=== PATIENT | male | born 1975 | race Caucasian/White ===

== ENCOUNTER 2017-12-15 10:12 | Emergency (ER) | payer OTHER ==
[~2017-12-15] VITALS: Ht 180.3 cm; Wt 116.1 kg
[~2017-12-15 10:12] MED LIST: ACETAMINOPHEN500 MG PO; ALBU90OI INH; ATEN50 PO; Bactrim Ds Tab1 EACH PO; Benadryl25 MG; CYCL10 PO; DIVA500EC PO; FURO20 PO; Naprosyn250 MG PO; OMEP20ER PO; PARO10 PO; POTCHL10ER PO; Percocet 5-3251 EACH PO; RISP.5 PO
[2018-10-18] MEDS ORDERED: LORA1 PO (14:09)
[2018-10-18] MEDS ORDERED: RISP2 (14:09)
[2018-10-18] MEDS ORDERED: ATEN50 PO (14:09)
[2018-10-18] MEDS ORDERED: Oxcarbazepine300 MG PO (14:10)
[2018-10-18] MEDS ORDERED: Omeprazole20 M1 PO (14:10)
[2018-10-18] MEDS ORDERED: ONDA8 PO (14:10)
[2018-10-18] MEDS ORDERED: TRAZ50 PO (14:11)
[2018-10-18] MEDS ORDERED: ALBU90OI INH (14:11)
[2018-10-18] MEDS ORDERED: NAPR500 PO (14:11)
== END 2017-12-15 11:25 | disposition home or self-care (01) ==
LOC: ER 10:12
DX: R19.00 Intra-abdominal and pelvic swelling, mass and lump, unspecified site (principal); Z88.0 Allergy status to penicillin; Z88.2 Allergy status to sulfonamides; Z88.8 Allergy status to other drugs, medicaments and biological substances; Z79.899 Other long term (current) drug therapy; J45.909 Unspecified asthma, uncomplicated; F43.10 Post-traumatic stress disorder, unspecified; F31.9 Bipolar disorder, unspecified; F20.9 Schizophrenia, unspecified; F17.200 Nicotine dependence, unspecified, uncomplicated
CPT/HCPCS: 99282

== ENCOUNTER 2018-03-20 10:09 | Emergency (ER) | payer OTHER ==
[~2018-03-20] VITALS: Ht 175.3 cm; Wt 110.2 kg
[2018-03-20] MEDS ORDERED: Floxin10 ML RIGHTEAR (11:26)
== END 2018-03-20 11:31 | disposition home or self-care (01) ==
LOC: ER 10:09
DX: H60.91 Unspecified otitis externa, right ear (principal); Z88.0 Allergy status to penicillin; Z88.2 Allergy status to sulfonamides; Z88.8 Allergy status to other drugs, medicaments and biological substances; Z79.899 Other long term (current) drug therapy; J45.909 Unspecified asthma, uncomplicated; F43.10 Post-traumatic stress disorder, unspecified; F31.9 Bipolar disorder, unspecified; F20.9 Schizophrenia, unspecified; F17.200 Nicotine dependence, unspecified, uncomplicated
CPT/HCPCS: 99282

== ENCOUNTER → 2018-09-14 | Outpatient (CLI) | payer OTHER ==
[~2018-09-14] MED LIST changes: +Floxin10 ML RIGHTEAR; +LORA1 PO; +NAPR500 PO; +ONDA8 PO; +Omeprazole20 M1 PO; +Oxcarbazepine300 MG PO; +QUET25 PO; +RISP2; +TRAZ50 PO
[2018-09-14 17:15] LABS: U Amphetamine Screen Not Detected; U Barbituate Screen Not Detected; U Benzodiazapine Screen DETECTED; U Buprenorphine Screen Not Detected; U Cannabinoids Screen DETECTED; U Cocaine Screen Not Detected; U Methadone Screen Not Detected; U Methamphetamine Screen Not Detected; U Opiates Screen Not Detected; U Oxycodone Screen Not Detected; U Phencyclidine Screen Not Detected; U Propoxyphene Screen Not Detected
== END ==
LOC: LAB 15:00 → LAB SHORT 15:00
PROVIDERS: Registered Nurse
DX: Z51.81 Encounter for therapeutic drug level monitoring (principal); Z79.899 Other long term (current) drug therapy

== ENCOUNTER 2018-10-26 09:54 | Day surgery (SDC) | payer OTHER ==
[~2018-10-26] VITALS: Ht 180.3 cm; Wt 115.4 kg
[~2018-10-26 09:54] MED LIST changes: -QUET25 PO
[2018-10-26] MEDS ORDERED: QUET25 PO (10:43)
== END 2018-10-26 12:11 | disposition home or self-care (01) ==
LOC: ORSCSDS 09:54
PROVIDERS: Student in an Organized Health Care Education/Training Program
PROC: 0DB68ZX Excision of Stomach, Via Natural or Artificial Opening Endoscopic, Diagnostic (ICD-10-PCS; principal; 2018-10-26 11:30)
PROC: 0DB58ZX Excision of Esophagus, Via Natural or Artificial Opening Endoscopic, Diagnostic (ICD-10-PCS; principal; 2018-10-26 11:30)
DX: K21.9 Gastro-esophageal reflux disease without esophagitis (principal); R12 Heartburn; K44.9 Diaphragmatic hernia without obstruction or gangrene; K29.70 Gastritis, unspecified, without bleeding; I10 Essential (primary) hypertension; J45.909 Unspecified asthma, uncomplicated; F31.9 Bipolar disorder, unspecified; F41.8 Other specified anxiety disorders; F17.210 Nicotine dependence, cigarettes, uncomplicated; G47.33 Obstructive sleep apnea (adult) (pediatric); Z79.899 Other long term (current) drug therapy
CPT/HCPCS: 88305; 88342; J7120

== ENCOUNTER 2019-02-12 07:39 | Emergency (ER) | payer OTHER ==
[~2019-02-12] VITALS: Ht 180.3 cm; Wt 116.1 kg
[~2019-02-12 07:39] MED LIST changes: +QUET25 PO
[2019-02-12 09:09] LABS: Influenza A Negative (NEGATIVE); Influenza B Negative (NEGATIVE)
[2019-02-12] MEDS ORDERED: Mucinex600 MG PO (09:28)
[2019-02-12] MEDS ORDERED: Flonase 0.05% N16 GM (09:28)
== END 2019-02-12 09:42 | disposition home or self-care (01) ==
LOC: ER 07:39
PROVIDERS: Physician Assistant
DX: R51 Headache (principal); R68.83 Chills (without fever); R52 Pain, unspecified; J45.909 Unspecified asthma, uncomplicated; F31.9 Bipolar disorder, unspecified; F20.9 Schizophrenia, unspecified; G47.30 Sleep apnea, unspecified; F17.200 Nicotine dependence, unspecified, uncomplicated; Z88.0 Allergy status to penicillin; Z88.2 Allergy status to sulfonamides; Z88.6 Allergy status to analgesic agent; Z79.899 Other long term (current) drug therapy
CPT/HCPCS: 87804; 96372; 99284-25; J1885

== ENCOUNTER 2021-04-03 13:32 | Emergency (ER) | payer OTHER ==
[~2021-04-03] VITALS: Ht 180.3 cm; Wt 95.7 kg
[~2021-04-03 13:32] MED LIST changes: +Flonase 0.05% N16 GM; +Mucinex600 MG PO
[2021-04-03 14:43] LABS: BASOPHILS PERCENT AUTO 1 % (0-2); EOSINOPHILS ABSOLUTE AUTO 1.62 K/mm3 (0.00-0.68); EOSINOPHILS PERCENT AUTO 14 % (0-6); Hematocrit 44.2 % (37.0-53.0); Hemoglobin 15.1 g/dL (13.5-17.5); IMMATURE GRAN ABSOLUTE AUTO 0.04 K/mm3 (0.00-0.10); IMMATURE GRAN PERCENT AUTO 0 % (0-1); LYMPHOCYTES ABSOLUTE AUTO 1.86 K/mm3 (0.84-5.20); LYMPHOCYTES PERCENT AUTO 16 % (21-46); MONOCYTES ABSOLUTE AUTO 1.18 K/mm3 (0.16-1.47); MONOCYTES PERCENT AUTO 10 % (4-13); Mean Corpuscular HGB 29.5 pg (26.0-34.0); Mean Corpuscular HGB Conc 34.2 g/dL (31.5-36.5); Mean Corpuscular Volume 86 fL (80-100); Mean Platelet Volume 8.4 fL (9.1-12.4); NEUTROPHILS PERCENT AUTO 60 % (41-73); Platelet Count 411 K/mm3 (150-400); RDW Standard Deviation 38.2 fL (35.1-46.3); Red Blood Cell Count 5.12 M/mm3 (4.30-5.90)
[2021-04-03 15:09] LABS: Alanine Aminotransfer (ALT/SGP 33 U/L (12-78); Albumin, Blood 3.1 g/dL (3.4-5.0); Albumin/Globulin Ratio 0.8 (0.8-1.8); Alk Phos 75 U/L (50-136); Anion Gap 3 mmol/L (6-16); Aspartate Aminotrans (AST/SGOT 19 U/L (12-37); Bilirubin, Total 0.6 mg/dL (0.1-1.0); Blood Urea Nitrogen 13 mg/dL (8-24); Bun/Creatinine Ratio 14.5 (12.0-20.0); CO2, Blood 30 mmol/L (21-32); Calcium, Blood 8.7 mg/dL (8.5-10.1); Chloride, Blood 102 mmol/L (98-108); Creatinine, Blood 0.89 mg/dL (0.60-1.20); Glomerular Filtration Rate >60 (60-); Glucose, Blood 100 mg/dL (70-99); Potassium, Blood 4.5 mmol/L (3.5-5.5); Sodium, Blood 135 mmol/L (136-145); Total Protein, Blood 7.1 g/dL (6.4-8.2); Troponin I <0.015 ng/mL (0.000-0.040)
[2021-05-28] MEDS ORDERED: VALP250 PO (09:46)
[2021-05-28] MEDS ORDERED: SEROQUEL100 MG PO (09:47)
[2021-05-28] MEDS ORDERED: PARO10 PO (09:47)
[2021-05-28] MEDS ORDERED: QUETIAPINE FUMA50 M2 PO (09:47)
[2021-05-28] MEDS ORDERED: GABA300 PO (09:48)
[2021-05-28] MEDS ORDERED: NICODERM CQ1 EAC1 TOP (09:48)
[2021-05-28] MEDS ORDERED: BACL10 PO (09:48)
[2021-05-28] MEDS ORDERED: ATEN100 PO (09:48)
== END 2021-04-03 16:29 | disposition home or self-care (01) ==
LOC: ER 13:32
PROVIDERS: Physician Assistant
DX: J90 Pleural effusion, not elsewhere classified (principal); F17.200 Nicotine dependence, unspecified, uncomplicated; Z88.0 Allergy status to penicillin; Z88.2 Allergy status to sulfonamides; Z88.6 Allergy status to analgesic agent; Z79.899 Other long term (current) drug therapy
CPT/HCPCS: 36415; 71045; 80053; 83880; 84484; 85025; 93005; 93010; 99284-25

== ENCOUNTER 2021-05-28 10:00 | Emergency (ER) | payer OTHER ==
[~2021-05-28] VITALS: Ht 180.3 cm; Wt 99.8 kg
[~2021-05-28 10:00] MED LIST changes: +ATEN100 PO; +BACL10 PO; +GABA300 PO; +NICODERM CQ1 EAC1 TOP; +QUETIAPINE FUMA50 M2 PO; +SEROQUEL100 MG PO; +VALP250 PO
[2021-05-28 10:41] LABS: BASOPHILS ABSOLUTE AUTO 0.03 K/mm3 (0.00-0.23); BASOPHILS PERCENT AUTO 0 % (0-2); EOSINOPHILS ABSOLUTE AUTO 0.31 K/mm3 (0.00-0.68); EOSINOPHILS PERCENT AUTO 4 % (0-6); Hematocrit 42.9 % (37.0-53.0); Hemoglobin 13.8 g/dL (13.5-17.5); IMMATURE GRAN ABSOLUTE AUTO 0.02 K/mm3 (0.00-0.10); IMMATURE GRAN PERCENT AUTO 0 % (0-1); LYMPHOCYTES ABSOLUTE AUTO 1.18 K/mm3 (0.84-5.20); LYMPHOCYTES PERCENT AUTO 17 % (21-46); MONOCYTES ABSOLUTE AUTO 0.56 K/mm3 (0.16-1.47); MONOCYTES PERCENT AUTO 8 % (4-13); Mean Corpuscular HGB 28.5 pg (26.0-34.0); Mean Corpuscular HGB Conc 32.2 g/dL (31.5-36.5); Mean Corpuscular Volume 89 fL (80-100); Mean Platelet Volume 8.8 fL (9.1-12.4); NEUTROPHILS ABSOLUTE AUTO 4.96 K/mm3 (1.96-9.15); NEUTROPHILS PERCENT AUTO 70 % (41-73); Platelet Count 287 K/mm3 (150-400); RDW Coefficient Variation 13.2 % (11.7-14.2); RDW Standard Deviation 43.1 fL (35.1-46.3); Red Blood Cell Count 4.85 M/mm3 (4.30-5.90); White Blood Cell Count 7.06 K/mm3 (4.00-11.30)
[2021-05-28 11:03] LABS: Alanine Aminotransfer (ALT/SGP 26 U/L (12-78); Albumin/Globulin Ratio 0.8 (0.8-1.8); Alk Phos 78 U/L (50-136); Anion Gap 4 mmol/L (6-16); Aspartate Aminotrans (AST/SGOT 13 U/L (12-37); Bilirubin, Total 0.2 mg/dL (0.1-1.0); Blood Urea Nitrogen 18 mg/dL (8-24); Bun/Creatinine Ratio 23.7 (12.0-20.0); CO2, Blood 29 mmol/L (21-32); Calcium, Blood 8.5 mg/dL (8.5-10.1); Chloride, Blood 107 mmol/L (98-108); Creatinine, Blood 0.76 mg/dL (0.60-1.20); Globulin, Blood 3.8 g/dL (2.2-4.0); Glomerular Filtration Rate >60 (60-); Glucose, Blood 108 mg/dL (70-99); Sodium, Blood 140 mmol/L (136-145); Total Protein, Blood 6.8 g/dL (6.4-8.2); Troponin I <0.015 ng/mL (0.000-0.040)
[2021-05-28] MEDS ORDERED: ALBU90OI INH (11:46)
[2021-05-28] MEDS ORDERED: PRED20 PO (11:46)
[2021-05-28] MEDS ORDERED: AZIT250 PO (11:46)
== END 2021-05-28 12:03 | disposition home or self-care (01) ==
LOC: ER 10:00
PROVIDERS: Emergency Medicine
DX: R07.9 Chest pain, unspecified (principal); J40 Bronchitis, not specified as acute or chronic; Z88.0 Allergy status to penicillin; Z79.899 Other long term (current) drug therapy; F17.210 Nicotine dependence, cigarettes, uncomplicated
CPT/HCPCS: 71046; 80053; 84484; 85025; 93005; 93010; 94644; 99284-25; J1100; J1885

== ENCOUNTER 2021-09-03 05:57 | Emergency (ER) | payer OTHER ==
[~2021-09-03] VITALS: Ht 180.3 cm; Wt 62.6 kg
[~2021-09-03 05:57] MED LIST changes: +ALBU2.5V5 INH; +AZIT250 PO; +DIVA250ER PO; +LEVO750 PO; +Nicoderm Cq1 EAC1 TOP; +PRED20 PO; +Prednisone10 MG PO; +QUET100 PO; +VISBIOME 112.51 EACH PO
[2021-09-03 07:57] LABS: BASOPHILS ABSOLUTE AUTO 0.04 K/mm3 (0.00-0.23); BASOPHILS PERCENT AUTO 0 % (0-2); EOSINOPHILS ABSOLUTE AUTO 0.07 K/mm3 (0.00-0.68); EOSINOPHILS PERCENT AUTO 1 % (0-6); Hematocrit 45.1 % (37.0-53.0); Hemoglobin 14.4 g/dL (13.5-17.5); IMMATURE GRAN ABSOLUTE AUTO 0.14 K/mm3 (0.00-0.10); IMMATURE GRAN PERCENT AUTO 2 % (0-1); LYMPHOCYTES ABSOLUTE AUTO 2.13 K/mm3 (0.84-5.20); LYMPHOCYTES PERCENT AUTO 23 % (21-46); MONOCYTES ABSOLUTE AUTO 0.73 K/mm3 (0.16-1.47); MONOCYTES PERCENT AUTO 8 % (4-13); Mean Corpuscular HGB 28.2 pg (26.0-34.0); Mean Corpuscular HGB Conc 31.9 g/dL (31.5-36.5); Mean Corpuscular Volume 88 fL (80-100); Mean Platelet Volume 8.9 fL (9.1-12.4); NEUTROPHILS ABSOLUTE AUTO 6.12 K/mm3 (1.96-9.15); NEUTROPHILS PERCENT AUTO 66 % (41-73); Platelet Count 234 K/mm3 (150-400); RDW Standard Deviation 45.3 fL (35.1-46.3); Red Blood Cell Count 5.11 M/mm3 (4.30-5.90); White Blood Cell Count 9.23 K/mm3 (4.00-11.30)
[2021-09-03 08:08] LABS: Alanine Aminotransfer (ALT/SGP 20 U/L (12-78); Albumin/Globulin Ratio 0.9 (0.8-1.8); Alk Phos 61 U/L (50-136); Anion Gap 3 mmol/L (6-16); Aspartate Aminotrans (AST/SGOT 6 U/L (12-37); Bilirubin, Total 0.2 mg/dL (0.1-1.0); Blood Urea Nitrogen 22 mg/dL (8-24); CO2, Blood 29 mmol/L (21-32); Calcium, Blood 8.3 mg/dL (8.5-10.1); Chloride, Blood 107 mmol/L (98-108); Creatinine, Blood 0.79 mg/dL (0.60-1.20); Globulin, Blood 3.3 g/dL (2.2-4.0); Glomerular Filtration Rate >60 (60-); Glucose, Blood 94 mg/dL (70-99); Sodium, Blood 139 mmol/L (136-145); Total Protein, Blood 6.3 g/dL (6.4-8.2); Troponin I <0.015 ng/mL (0.000-0.040)
== END 2021-09-03 09:05 | disposition home or self-care (01) ==
LOC: ER 05:57
PROVIDERS: Physician Assistant
DX: J18.9 Pneumonia, unspecified organism (principal); J45.909 Unspecified asthma, uncomplicated; G47.30 Sleep apnea, unspecified; F17.210 Nicotine dependence, cigarettes, uncomplicated; Z88.0 Allergy status to penicillin; Z79.899 Other long term (current) drug therapy
CPT/HCPCS: 36415; 71046; 80053; 83880; 84484; 85025; 93005; 93010; 99285-25

== ENCOUNTER 2021-09-22 07:52 | Observation (INO) | payer OTHER ==
[~2021-09-22] VITALS: Ht 180.3 cm; Wt 114.8 kg
[2021-09-22 08:32] LABS: Hemoglobin 15.9 g/dL (13.5-17.5); Mean Corpuscular HGB 28.4 pg (26.0-34.0); Mean Corpuscular HGB Conc 33.1 g/dL (31.5-36.5); Mean Corpuscular Volume 86 fL (80-100); Mean Platelet Volume 8.6 fL (9.1-12.4); Platelet Count 245 K/mm3 (150-400); RDW Coefficient Variation 13.5 % (11.7-14.2); RDW Standard Deviation 42.1 fL (35.1-46.3); White Blood Cell Count 9.72 K/mm3 (4.00-11.30)
[2021-09-22 08:57] LABS: Alanine Aminotransfer (ALT/SGP 26 U/L (12-78); Albumin, Blood 3.6 g/dL (3.4-5.0); Albumin/Globulin Ratio 0.9 (0.8-1.8); Alk Phos 86 U/L (50-136); Anion Gap 8 mmol/L (6-16); Aspartate Aminotrans (AST/SGOT 16 U/L (12-37); Bilirubin, Total 0.4 mg/dL (0.1-1.0); Blood Urea Nitrogen 27 mg/dL (8-24); Bun/Creatinine Ratio 37.4 (12.0-20.0); CO2, Blood 26 mmol/L (21-32); Calcium, Blood 8.9 mg/dL (8.5-10.1); Chloride, Blood 104 mmol/L (98-108); Creatinine, Blood 0.72 mg/dL (0.60-1.20); Ethanol (Alcohol), Blood, Med <3 mg/dL; Free Thyroxine 0.78 ng/dL (0.70-1.60); Globulin, Blood 3.8 g/dL (2.2-4.0); Glomerular Filtration Rate >60 (60-); Glucose, Blood 132 mg/dL (70-99); Sodium, Blood 138 mmol/L (136-145); Thyroid Stimulating Hormone 0.563 uIU/mL (0.360-4.800); Total Protein, Blood 7.4 g/dL (6.4-8.2)
[2021-09-22 08:58] LABS: Acetaminophen, Random <2.0 ug/mL (10.0-30.0)
[2021-09-22 09:00] LABS: BAND PERCENT MAN 2 % (0-8); BASOPHILS PERCENT MAN 0 % (0-2); EOSINOPHILS PERCENT MAN 0 % (0-6); LYMPHOCYTES ABSOLUTE MAN 0.58 K/mm3 (0.84-5.20); LYMPHOCYTES PERCENT MAN 6 % (21-46); MONOCYTES ABSOLUTE MAN 0.09 K/mm3 (0.16-1.47); MONOCYTES PERCENT MAN 1 % (4-13); NEUTROPHILS ABSOLUTE MAN 9.03 K/mm3 (1.96-9.15); SEG NEUTROPHILS PERCENT MAN 91 % (41-73); TOTAL CELLS COUNTED 100
[2021-09-22 09:05] LABS: U Amphetamine Screen Not Detected; U Barbituate Screen Not Detected; U Benzodiazapine Screen Not Detected; U Cannabinoids Screen DETECTED; U Cocaine Screen Not Detected; U Methadone Screen Not Detected; U Methamphetamine Screen Not Detected; U Opiates Screen DETECTED; U Phencyclidine Screen Not Detected
[2021-09-22 09:06] LABS: U Buprenorphine Screen Not Detected; U Oxycodone Screen Not Detected; U Propoxyphene Screen Not Detected
[2021-09-22 10:47] LABS: Valproic Acid 100.8 ug/mL (50.0-100.0)
[2021-09-22 12:11] LABS: SARS-Cov-2 (COVID-19) PCR, MMC NEGATIVE (NEGATIVE)
--- NOTE | 2021-09-22 12:46 | NUR ---
Assumed care. Report received from SALES AND MARKETING ANALYST. Pt arrived to ICU alert and oriented, able to transfer himself to ICU bed w/o help. Pt on room air, vital signs stable at this time. PT has IV access in R/AC and L/AC, NS running at 100 ml/hr. Sitter present and remote monitoring on for suicide precautions. Pt denies any pain or feeling of self harm at this time. Will continue to monitor.
[2021-09-22 15:24] LABS: Salicylate 2.8 mg/dL (2.8-20.0); Valproic Acid 45.4 ug/mL (50.0-100.0)
--- NOTE | 2021-09-22 17:52 | NUR ---
Shift summary. Pt rested quietly throughout shift. Pt alert and oriented, remained calm and cooperative since admission to ICU. Pt on room air, vital signs stable, NS running at 100 ml/hr. 1 to 1 and remote monitoring remain in place for suicide precautions. See shift assessment for details. Will continue to monitor and report off to nightshift RN.
--- NOTE | 2021-09-22 20:00 | NUR ---
ASSUMED CARE OF PT AT 1915. REPORT RECEIVED. PT PRESENTS IN BED SLEEPING. NO S/S SELF-HARMING BEHAVIOUR AT THIS TIME. DO HAVE A 1:1 SITTER TO MONITOR PT, FOR HIS OWN SAFETY. REMOTE CAMERA ALSO IN USE. WILL REVIEW CHART AND PLAN OF CARE FOR THIS PT.
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
[2021-09-23 03:37] LABS: BASOPHILS ABSOLUTE AUTO 0.02 K/mm3 (0.00-0.23); BASOPHILS PERCENT AUTO 0 % (0-2); EOSINOPHILS ABSOLUTE AUTO 0.02 K/mm3 (0.00-0.68); EOSINOPHILS PERCENT AUTO 0 % (0-6); Hematocrit 41.8 % (37.0-53.0); Hemoglobin 14.1 g/dL (13.5-17.5); IMMATURE GRAN ABSOLUTE AUTO 0.02 K/mm3 (0.00-0.10); IMMATURE GRAN PERCENT AUTO 0 % (0-1); LYMPHOCYTES PERCENT AUTO 10 % (21-46); MONOCYTES PERCENT AUTO 7 % (4-13); Mean Corpuscular HGB 29.1 pg (26.0-34.0); Mean Corpuscular HGB Conc 33.7 g/dL (31.5-36.5); Mean Corpuscular Volume 86 fL (80-100); Mean Platelet Volume 8.5 fL (9.1-12.4); NEUTROPHILS ABSOLUTE AUTO 8.81 K/mm3 (1.96-9.15); NEUTROPHILS PERCENT AUTO 82 % (41-73); Platelet Count 229 K/mm3 (150-400); RDW Coefficient Variation 13.9 % (11.7-14.2); RDW Standard Deviation 44.2 fL (35.1-46.3); Red Blood Cell Count 4.84 M/mm3 (4.30-5.90); White Blood Cell Count 10.77 K/mm3 (4.00-11.30)
[2021-09-23 03:51] LABS: International Normalized Ratio 1.1; Prothrombin Time Results 11.5 Sec (9.7-11.5)
[2021-09-23 04:01] LABS: Alanine Aminotransfer (ALT/SGP 18 U/L (12-78); Alk Phos 57 U/L (50-136); Anion Gap 3 mmol/L (6-16); Aspartate Aminotrans (AST/SGOT 9 U/L (12-37); Bilirubin, Total 0.3 mg/dL (0.1-1.0); Blood Urea Nitrogen 24 mg/dL (8-24); Bun/Creatinine Ratio 28.2 (12.0-20.0); CO2, Blood 31 mmol/L (21-32); Calcium, Blood 8.3 mg/dL (8.5-10.1); Chloride, Blood 107 mmol/L (98-108); Creatinine, Blood 0.85 mg/dL (0.60-1.20); Globulin, Blood 3.1 g/dL (2.2-4.0); Glomerular Filtration Rate >60 (60-); Glucose, Blood 107 mg/dL (70-99); Magnesium, Blood 2.1 mg/dL (1.6-2.4); Potassium, Blood 3.9 mmol/L (3.5-5.5); Sodium, Blood 141 mmol/L (136-145); Total Protein, Blood 6.1 g/dL (6.4-8.2)
--- NOTE | 2021-09-23 06:06 | NUR ---
PT HAS BEEN ABLE TO SLEEP THIS NIGHT. NO ISSUES TO REPORT. NO SIGNIFICANT ECG CHANGES. HAVE NOTED QTC HAS IMPROVED SOME THROUGH THEN NIGHT. NO COMPLAINTS OF CHEST PAIN OR PRESSURE. PT REMAINS ALERT AND ORIENTED. PLEASANT AND COOPERATIVE WITH CARE AND ASSESSMENT. PT UNDERSTANDS THAT HE SHOULD EXPECT A VISIT FROM DR CULP SOMETIME DURING THE DAY. PT CALLS IN TO [facility] CONCERNING IF HE IS TO DO HIS UA. NO WAS REQUIRED. WILL MAKE [facility] AWARE PT IS IN THE HOSPITAL. REPORTED, AN [facility] EMPLOYEE HAD CALLED TO CHECK ON HIM EARLIER YESTERDAY. WILL CONTINUE TO MONITOR PT, AND WILL REPORT OFF TO ONCOMING RN.
--- NOTE | 2021-09-23 07:25 | NUR ---
ASSUMED CARE: PT SITTING UP IN BED, TALKING TO STAFF. A AND O X4. PLEASANT, COOPERATIVE. DENIES THOUGHTS OF HARMING HIMSELF. STATES HE HAS AN ACTION PLAN IF HE GOES INTO CRISIS MODE AGAIN, MEANING HE KNOWS WHAT RESOURCES TO CALL FOR HELP IF HE EVER HAS THOUGHTS OF SELF HARM AGAIN. REMOTE MONITORING AND 1:[address] NO ACUTE NEEDS AT THIS TIME.
--- NOTE | 2021-09-23 08:10 | NUR ---
Notified of patient admit to ICU and possible Safety Plan will be needed. Called [facility] crisis and spoke with pre-commitment clinical investigator Antoni, who will see patient today for evaluation of invountary hold. Patient is ACT client. Onelia Sandoval NP is med provider--last visit phone call [phone]. Pt was to have appointments today for visits from ACT team: Cuca Uribe, [facility]; peer support Juli at [phone], MA at 1400, Nurse at 1500. Pt had called Nurse yesterday after overdose to notify her, and she called 911 for ambulance. Antoni given ICU phone number for ACT to call to arrange visit with patient; [facility] carbon electrodes supervisor also emailed. Gabi Lomas, HP-C
--- NOTE | 2021-09-23 08:21 | NUR ---
[facility] Lead Therapist, Mao Hussein LCSW phone number [phone]; cell [phone]
--- NOTE | 2021-09-23 09:15 | NUR ---
TMAMY GREY AT BEDSIDE
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
--- NOTE | 2021-09-23 10:40 | NUR ---
DR BADILLO CAME TO SEE PT. ASKED IF SHE WOULD LIKE TO DOWNGRADE PT'S RISK STATUS OR HOSPITAL STATUS AND DR BADILLO SAID SHE WOULD LIKE TO DEFER BOTH DECISIONS TO DR ISLAS WHEN HE COMES TO EVALUATE PT
--- NOTE | 2021-09-23 12:35 | NUR ---
1235-call from [place]. Assessed patient this morning. Made plans with patient to grt a lockbox for meds from [facility] for safety, with crisis number on box. He reports patient agreed, and is looking forward to foing to [facility] at [place] to get lockbox and see ACT team. [place] [phone] Gabi Lmoas
--- NOTE | 2021-09-23 15:20 | NUR ---
DR ISLAS CAME TO SEE PT AND STATES PT NO LONGER NEEDS SUICIDE PRECAUTIONS OR A HOLD. SITTER LEFT PT AT 1510 AND CEO [place] AND NURSING MANAGER REAL ESTATE AWARE. DR ISLAS CALLED DR BADILLO WHO TOLD HIM SHE WAS WAITING FOR LAB RESULTS. LAB AT BEDSIDE WHEN EKG WAS BEING COMPLETED. AWAITING RESULTS AT THIS TIME.
[2021-09-23 16:05] LABS: Valproic Acid 10.4 ug/mL (50.0-100.0)
--- NOTE | 2021-09-23 18:12 | NUR ---
DISCUSSED DC INSTRUCTIONS WITH PT AND PT STATES HE HAS APPOINTMENTS SCHEDULED IN THE NEXT FEW DAYS WITH [facility]. IV DC'D WNL. PT DID NOT HAVE RIDE AVAILABLE SO NURSING PEGGER AUTHORIZED BUS PASS AND SECURITY GAVE PT A RIDE TO BUS STOP. PT DENIED FURTHER QUESTIONS OR CONCERNS.
== END 2021-09-23 17:32 | disposition home or self-care (01) ==
LOC: ER 07:52 → ERHOLD 07:53 → ICUW 11:39
PROVIDERS: Emergency Medicine; Internal Medicine; Nurse Practitioner Acute Care; ADMIT Internal Medicine
DX: T38.0X2A Poisoning by glucocorticoids and synthetic analogues, intentional self-harm, initial encounter (principal); T36.8X2A Poisoning by other systemic antibiotics, intentional self-harm, initial encounter; T43.592A Poisoning by other antipsychotics and neuroleptics, intentional self-harm, initial encounter; F25.1 Schizoaffective disorder, depressive type; J44.9 Chronic obstructive pulmonary disease, unspecified; F43.10 Post-traumatic stress disorder, unspecified; F31.9 Bipolar disorder, unspecified; I10 Essential (primary) hypertension; F15.10 Other stimulant abuse, uncomplicated; G47.33 Obstructive sleep apnea (adult) (pediatric); K21.9 Gastro-esophageal reflux disease without esophagitis; F17.210 Nicotine dependence, cigarettes, uncomplicated; Z20.822 Contact with and (suspected) exposure to COVID-19
CPT/HCPCS: 36415; 71045; 80053; 80164; 82140; 83735; 84132; 84439; 84443; 85025; 85610; 90471; 90686; 90714; 93005; 93010; 96372; 96374; 99285-25; A9270; G0008; G0378; G0480; J1650; J2310; J7030; U0004

== ENCOUNTER 2022-07-06 08:27 | Emergency (ER) | payer OTHER ==
[~2022-07-06] VITALS: Ht 180.3 cm; Wt 90.7 kg
[2022-07-06 09:15] LABS: BASOPHILS ABSOLUTE AUTO 0.03 K/mm3 (0.00-0.23); BASOPHILS PERCENT AUTO 0 % (0-2); EOSINOPHILS ABSOLUTE AUTO 0.44 K/mm3 (0.00-0.68); EOSINOPHILS PERCENT AUTO 6 % (0-6); Hematocrit 52.4 % (37.0-53.0); Hemoglobin 18.1 g/dL (13.5-17.5); IMMATURE GRAN ABSOLUTE AUTO 0.03 K/mm3 (0.00-0.10); IMMATURE GRAN PERCENT AUTO 0 % (0-1); LYMPHOCYTES ABSOLUTE AUTO 1.52 K/mm3 (0.84-5.20); LYMPHOCYTES PERCENT AUTO 22 % (21-46); MONOCYTES ABSOLUTE AUTO 0.59 K/mm3 (0.16-1.47); MONOCYTES PERCENT AUTO 9 % (4-13); Mean Corpuscular HGB 29.8 pg (26.0-34.0); Mean Corpuscular HGB Conc 34.5 g/dL (31.5-36.5); Mean Corpuscular Volume 86 fL (80-100); NEUTROPHILS ABSOLUTE AUTO 4.34 K/mm3 (1.96-9.15); NEUTROPHILS PERCENT AUTO 63 % (41-73); Platelet Count 240 K/mm3 (150-400); RDW Coefficient Variation 13.2 % (11.7-14.2); RDW Standard Deviation 41.6 fL (35.1-46.3); Red Blood Cell Count 6.07 M/mm3 (4.30-5.90); White Blood Cell Count 6.95 K/mm3 (4.00-11.30)
[2022-07-06 09:26] LABS: Albumin, Blood 3.9 g/dL (3.4-5.0); Albumin/Globulin Ratio 1.2 (0.8-1.8); Bilirubin, Total 0.7 mg/dL (0.1-1.0); Bun/Creatinine Ratio 20.4 (12.0-20.0); Creatinine, Blood 0.74 mg/dL (0.60-1.20); Globulin, Blood 3.3 g/dL (2.2-4.0); Potassium, Blood 4.7 mmol/L (3.5-5.5); Total Protein, Blood 7.2 g/dL (6.4-8.2)
[2022-07-06 09:45] LABS: Source, Urine Clean Catch
[2022-07-06 09:55] LABS: Appearance, Urine Clear (Clear); Bilirubin, Urine Neg (Neg); Blood, Urine Neg (Neg); Color, Urine Yellow (P-Yellow); Glucose Qualitative, Urine Neg (Neg); Ketones, Urine Neg (Neg); Leukocyte Esterase, Urine Neg (Neg); Nitrite, Urine Neg (Neg); Protein, Urine Neg (Neg); Urobilinogen, Urine NORM (Normal)
== END 2022-07-06 11:14 | disposition home or self-care (01) ==
LOC: ER 08:27
PROVIDERS: Physician Assistant
DX: J06.9 Acute upper respiratory infection, unspecified (principal); J44.9 Chronic obstructive pulmonary disease, unspecified; F17.210 Nicotine dependence, cigarettes, uncomplicated; Z79.899 Other long term (current) drug therapy; Z88.0 Allergy status to penicillin
CPT/HCPCS: 71046; 80053; 81003; 83690; 84484; 85025; 93005; 93010

== ENCOUNTER 2022-08-12 12:18 | Emergency (ER) | payer OTHER ==
[~2022-08-12] VITALS: Ht 180.3 cm; Wt 97.5 kg
[2022-08-12 13:11] LABS: BASOPHILS ABSOLUTE AUTO 0.03 K/mm3 (0.00-0.23); BASOPHILS PERCENT AUTO 1 % (0-2); EOSINOPHILS ABSOLUTE AUTO 0.27 K/mm3 (0.00-0.68); EOSINOPHILS PERCENT AUTO 5 % (0-6); Hematocrit 47.3 % (37.0-53.0); Hemoglobin 16.1 g/dL (13.5-17.5); IMMATURE GRAN ABSOLUTE AUTO 0.06 K/mm3 (0.00-0.10); IMMATURE GRAN PERCENT AUTO 1 % (0-1); LYMPHOCYTES ABSOLUTE AUTO 1.51 K/mm3 (0.84-5.20); LYMPHOCYTES PERCENT AUTO 26 % (21-46); MONOCYTES ABSOLUTE AUTO 0.51 K/mm3 (0.16-1.47); MONOCYTES PERCENT AUTO 9 % (4-13); Mean Corpuscular HGB 29.9 pg (26.0-34.0); Mean Corpuscular Volume 88 fL (80-100); Mean Platelet Volume 8.7 fL (9.1-12.4); NEUTROPHILS ABSOLUTE AUTO 3.44 K/mm3 (1.96-9.15); NEUTROPHILS PERCENT AUTO 59 % (41-73); Platelet Count 226 K/mm3 (150-400); RDW Coefficient Variation 13.3 % (11.7-14.2); RDW Standard Deviation 42.4 fL (35.1-46.3); Red Blood Cell Count 5.39 M/mm3 (4.30-5.90); White Blood Cell Count 5.82 K/mm3 (4.00-11.30)
[2022-08-12 13:34] LABS: Albumin, Blood 3.4 g/dL (3.4-5.0); Bilirubin, Total 0.3 mg/dL (0.1-1.0); Bun/Creatinine Ratio 26.8 (12.0-20.0); Creatinine, Blood 1.12 mg/dL (0.60-1.20); Globulin, Blood 3.3 g/dL (2.2-4.0); Potassium, Blood 4.3 mmol/L (3.5-5.5); Total Protein, Blood 6.7 g/dL (6.4-8.2)
[2022-08-12 14:23] LABS: Influenza A, PCR NEGATIVE (NEGATIVE); Influenza B, PCR NEGATIVE (NEGATIVE); Resp Syncytial Virus, PCR NEGATIVE (NEGATIVE); SARS-Cov-2 (COVID-19) PCR, MMC NEGATIVE (NEGATIVE)
[2022-08-12] MEDS ORDERED: Prednisone20 MG PO (17:51)
[2022-08-12] MEDS ORDERED: ALBU90OI INH (17:51)
== END 2022-08-12 18:20 | disposition home or self-care (01) ==
LOC: ER 12:18
PROVIDERS: Emergency Medicine; Physician Assistant
DX: J45.909 Unspecified asthma, uncomplicated (principal); F17.210 Nicotine dependence, cigarettes, uncomplicated; Z20.822 Contact with and (suspected) exposure to COVID-19; F43.10 Post-traumatic stress disorder, unspecified; F31.9 Bipolar disorder, unspecified; F20.9 Schizophrenia, unspecified; Z79.899 Other long term (current) drug therapy
CPT/HCPCS: 0241U; 36415; 71046; 80053; 83690; 83880; 84484; 85025; 93005; 93010; 94640; 94664; 96374; 99285-25; J2930

== ENCOUNTER 2022-10-17 12:42 | Emergency (ER) | payer OTHER ==
[~2022-10-17] VITALS: Ht 180.3 cm; Wt 129.3 kg
[~2022-10-17 12:42] MED LIST changes: +Prednisone20 MG PO
[2022-10-17 13:26] LABS: BASOPHILS ABSOLUTE AUTO 0.03 K/mm3 (0.00-0.23); BASOPHILS PERCENT AUTO 1 % (0-2); EOSINOPHILS ABSOLUTE AUTO 0.27 K/mm3 (0.00-0.68); EOSINOPHILS PERCENT AUTO 6 % (0-6); Hematocrit 43.7 % (37.0-53.0); Hemoglobin 15.3 g/dL (13.5-17.5); IMMATURE GRAN ABSOLUTE AUTO 0.02 K/mm3 (0.00-0.10); IMMATURE GRAN PERCENT AUTO 0 % (0-1); LYMPHOCYTES ABSOLUTE AUTO 0.64 K/mm3 (0.84-5.20); LYMPHOCYTES PERCENT AUTO 13 % (21-46); MONOCYTES ABSOLUTE AUTO 0.55 K/mm3 (0.16-1.47); MONOCYTES PERCENT AUTO 11 % (4-13); Mean Corpuscular HGB 30.2 pg (26.0-34.0); Mean Corpuscular Volume 86 fL (80-100); Mean Platelet Volume 8.5 fL (9.1-12.4); NEUTROPHILS ABSOLUTE AUTO 3.43 K/mm3 (1.96-9.15); NEUTROPHILS PERCENT AUTO 69 % (41-73); Platelet Count 193 K/mm3 (150-400); RDW Coefficient Variation 13.4 % (11.7-14.2); RDW Standard Deviation 41.7 fL (35.1-46.3); Red Blood Cell Count 5.07 M/mm3 (4.30-5.90); White Blood Cell Count 4.94 K/mm3 (4.00-11.30)
[2022-10-17 14:02] LABS: Albumin, Blood 3.3 g/dL (3.4-5.0); Albumin/Globulin Ratio 1.1 (0.8-1.8); Bilirubin, Total 0.4 mg/dL (0.1-1.0); Bun/Creatinine Ratio 17.9 (12.0-20.0); Calcium, Blood 8.5 mg/dL (8.5-10.1); Creatinine, Blood 0.95 mg/dL (0.60-1.20); Globulin, Blood 3.1 g/dL (2.2-4.0); Total Protein, Blood 6.4 g/dL (6.4-8.2)
[2022-10-17] MEDS ORDERED: ALBU90OI INH (16:47)
[2022-10-17] MEDS ORDERED: LEVO750 PO (16:48)
== END 2022-10-17 17:10 | disposition home or self-care (01) ==
LOC: ER 12:42
PROVIDERS: Physician Assistant
DX: J44.9 Chronic obstructive pulmonary disease, unspecified (principal); F17.210 Nicotine dependence, cigarettes, uncomplicated; Z79.899 Other long term (current) drug therapy; Z79.52 Long term (current) use of systemic steroids; Z88.0 Allergy status to penicillin
CPT/HCPCS: 71046; 80053; 83690; 83880; 84484; 85025; 94644; 94664; A9270; J1100

== ENCOUNTER 2024-05-31 09:21 | Day surgery (SDC) | payer OTHER ==
[~2024-05-31] VITALS: Ht 180.3 cm; Wt 101.1 kg
[2024-05-31] VITALS (18 sets, daily range): BP systolic 91–126; BP diastolic 54–86
[~2024-05-31 09:21] MED LIST changes: +Lactated Ringer's 1,000 ML IV SCH; +METO100ER PO; +MINIPRESS2 M1 PO; +STIOLTO RESPIMAT4 G1 INH
[2024-05-31] MEDS ORDERED: TIOT18 INH (10:21)
--- NOTE | 2024-05-31 10:35 | NUR ---
Patient States Post-Procedure ride home has been arranged with Gisele Villeda, [facility] advocate, who would like to be called when patient is ready for discharge home.
[2024-05-31] MEDS ORDERED: propofoL 40 ML IV ONE (10:51)
[2024-05-31] MEDS ORDERED: Midazolam HCl 1MG / ML 2ML Vial ONE ×2 (10:51→11:06)
--- NOTE | 2024-05-31 10:56 | NUR ---
05/31/24 10[address] [place] [address] HISTORY, CHART, MEDICATIONS AND ALLERGIES REVIEWED BEFORE START OF PROCEDURE. PATIENT CONFIRMS NPO STATUS AND AGREES WITH SCHEDULED PROCEDURE. 3-LEAD EKG REVIEWED WITH PHYSICIAN PRIOR TO START OF PROCEDURE. MONITOR INTACT WITH CONTINUOUS PULSE OXIMETRY,CAPNOGRAPHY, 3-LEAD EKG, INTERMITTENT BP. SUPPLEMENTAL O2 TO BE TITRATED THROUGHOUT PROCEDURE TO MAINTAIN O2 SATURATION ABOVE 90%. PATIENT DETERMINED TO BE ASA APPROPRIATE FOR PROPOFOL SEDATION PRIOR TO START OF PROCEDURE BY .MALLAMPATI CLASS 2 AIRWAY: COMPLETE VISUALIZATION OF THE UVULA.
--- NOTE | 2024-05-31 11:58 | NUR ---
DISCHARGE PT A&OX4, VSS/RA, NAHID PO, DRESSED SELF, DENIES PAIN, IV DC'D, DC INS PROVIDED PT REP UNDERSTANDING, IV DC'D. LEFT FLOOR VIA WC WITH DC VOL TO GO HOME WITH ALL PERSONAL POSSESSIONS INCLUDING DENTURES AND DC INS, WITH RIDE WAITING.
== END 2024-05-31 11:55 | disposition home or self-care (01) ==
LOC: ORSCMMR 09:21 → ORD 10:30 → ORSCMMR 10:30
PROVIDERS: Internal Medicine Gastroenterology
PROC: 0DJD8ZZ Inspection of Lower Intestinal Tract, Via Natural or Artificial Opening Endoscopic (ICD-10-PCS; principal; 2024-05-31 10:30)
DX: K62.5 Hemorrhage of anus and rectum (principal); F99 Mental disorder, not otherwise specified; K59.09 Other constipation; K21.9 Gastro-esophageal reflux disease without esophagitis; J44.9 Chronic obstructive pulmonary disease, unspecified; F17.210 Nicotine dependence, cigarettes, uncomplicated; Z79.899 Other long term (current) drug therapy
CPT/HCPCS: J2250; J2704; J7120

== ENCOUNTER 2024-12-28 23:03 | Observation (INO) | payer OTHER ==
[~2024-12-28] VITALS: Ht 180.3 cm; Wt 105.2 kg
[~2024-12-28 23:03] MED LIST changes: -Lactated Ringer's 1,000 ML IV SCH; +TIOT18 INH
[2024-12-28 23:13] VITALS: BP 108/76
[2024-12-28 23:40] LABS: BASOPHILS ABSOLUTE AUTO 0.04 K/mm3 (0.00-0.23); BASOPHILS PERCENT AUTO 1 % (0-2); EOSINOPHILS PERCENT AUTO 1 % (0-6); Hematocrit 46.6 % (37.0-53.0); Hemoglobin 16.2 g/dL (13.5-17.5); IMMATURE GRAN ABSOLUTE AUTO 0.01 K/mm3 (0.00-0.10); IMMATURE GRAN PERCENT AUTO 0 % (0-1); LYMPHOCYTES ABSOLUTE AUTO 1.66 K/mm3 (0.84-5.20); LYMPHOCYTES PERCENT AUTO 21 % (21-46); MONOCYTES ABSOLUTE AUTO 0.68 K/mm3 (0.16-1.47); MONOCYTES PERCENT AUTO 9 % (4-13); Mean Corpuscular HGB 30.2 pg (26.0-34.0); Mean Corpuscular HGB Conc 34.8 g/dL (31.5-36.5); Mean Corpuscular Volume 87 fL (80-100); Mean Platelet Volume 8.7 fL (9.1-12.4); NEUTROPHILS PERCENT AUTO 69 % (41-73); Platelet Count 248 K/mm3 (150-400); RDW Coefficient Variation 13.2 % (11.7-14.2); RDW Standard Deviation 41.2 fL (35.1-46.3); Red Blood Cell Count 5.37 M/mm3 (4.30-5.90); White Blood Cell Count 7.99 K/mm3 (4.00-11.30)
[2024-12-29 00:07] LABS: Ethanol (Alcohol), Blood, Med <3 mg/dL
[2024-12-29 00:12] LABS: Acetaminophen, Random <2.0 ug/mL (10.0-30.0); Alanine Aminotransfer (ALT/SGP 25 U/L (12-78); Albumin, Blood 4.1 g/dL (3.4-5.0); Albumin/Globulin Ratio 1.3 (0.8-1.8); Alk Phos 68 U/L (50-136); Anion Gap 9 mmol/L (3-11); Aspartate Aminotrans (AST/SGOT 28 U/L (12-37); Bilirubin, Total 0.9 mg/dL (0.1-1.0); Blood Urea Nitrogen 21 mg/dL (8-24); Bun/Creatinine Ratio 24.9 (12.0-20.0); CO2, Blood 26 mmol/L (21-32); Calcium, Blood 9.3 mg/dL (8.5-10.1); Chloride, Blood 107 mmol/L (98-108); Creatinine, Blood 0.84 mg/dL (0.60-1.20); Globulin, Blood 3.2 g/dL (2.2-4.0); Glomerular Filtration Rate 108 (60-); Glucose, Blood 118 mg/dL (70-99); Potassium, Blood 3.8 mmol/L (3.5-5.5); Sodium, Blood 138 mmol/L (136-145); Total Protein, Blood 7.3 g/dL (6.4-8.2)
[2024-12-29 02:39] LABS: Source, Urine Clean Catch
[2024-12-29 02:42] LABS: Bilirubin, Urine Neg (Neg); Blood, Urine Neg (Neg); Glucose Qualitative, Urine Neg (Neg); Ketones, Urine Neg (Neg); Leukocyte Esterase, Urine 1+ (Neg); Nitrite, Urine Neg (Neg); Protein, Urine 1+ (Neg); Urobilinogen, Urine 1+ (Normal)
[2024-12-29 03:00] LABS: Appearance, Urine Clear (Clear); Color, Urine Yellow (P-Yellow)
[2024-12-29 03:01] LABS: Bacteria Few /hpf; Red Blood Cells, Urine 0-2 /hpf (0-2); Squamous Epithelial Cells Few /hpf (Few)
[2024-12-29 03:13] LABS: U Amphetamine Screen DETECTED; U Barbituate Screen Not Detected; U Benzodiazapine Screen Not Detected; U Buprenorphine Screen Not Detected; U Cannabinoids Screen DETECTED; U Cocaine Screen Not Detected; U Methadone Screen Not Detected; U Methamphetamine Screen DETECTED; U Opiates Screen Not Detected; U Oxycodone Screen Not Detected; U Phencyclidine Screen Not Detected
[2024-12-29 04:17] LABS: Influenza A, PCR NEGATIVE (NEGATIVE); Influenza B, PCR NEGATIVE (NEGATIVE); Resp Syncytial Virus, PCR NEGATIVE (NEGATIVE); SARS-Cov-2 (COVID-19) PCR, MMC NEGATIVE (NEGATIVE)
== END 2024-12-29 04:16 | disposition home or self-care (01) ==
LOC: ER 23:03 → EOR 23:04
PROVIDERS: Student in an Organized Health Care Education/Training Program; ADMIT Student in an Organized Health Care Education/Training Program
DX: F20.9 Schizophrenia, unspecified (principal); R45.851 Suicidal ideations; F43.10 Post-traumatic stress disorder, unspecified; F31.9 Bipolar disorder, unspecified; F17.210 Nicotine dependence, cigarettes, uncomplicated; Z79.899 Other long term (current) drug therapy
CPT/HCPCS: 0241U; 80053; 80320; 81001; 85025; 87086; 99285; G0378; G0480

== ENCOUNTER 2025-02-06 18:29 | Emergency (ER) | payer OTHER ==
[~2025-02-06] VITALS: Ht 180.3 cm; Wt 97.5 kg
[2025-02-06] MEDS ORDERED: NS 1,000 ML IV SCH (18:40)
[2025-02-06] MEDS ORDERED: ZYRTEC10 M4 PO (18:54)
[2025-02-06] MEDS ORDERED: Flonase 0.05% N16 GM (18:55)
[2025-02-06] MEDS ORDERED: MINIPRESS5 MG PO (18:55)
[2025-02-06] MEDS ORDERED: FLUT1DIS2 INH (18:55)
[2025-02-06] MEDS ORDERED: NARCAN4 M1 (18:55)
[2025-02-06] MEDS ORDERED: SPIRIVA RESPIMAT4 G3 IH (18:56)
[2025-02-06] MEDS ORDERED: SERT50 PO (18:56)
[2025-02-06] MEDS ORDERED: QUET200 PO (18:56)
[2025-02-06 19:11] LABS: BASOPHILS ABSOLUTE AUTO 0.06 K/mm3 (0.00-0.23); BASOPHILS PERCENT AUTO 1 % (0-2); EOSINOPHILS PERCENT AUTO 4 % (0-6); Hematocrit 47.8 % (37.0-53.0); Hemoglobin 16.9 g/dL (13.5-17.5); IMMATURE GRAN ABSOLUTE AUTO 0.02 K/mm3 (0.00-0.10); IMMATURE GRAN PERCENT AUTO 0 % (0-1); LYMPHOCYTES ABSOLUTE AUTO 2.03 K/mm3 (0.84-5.20); LYMPHOCYTES PERCENT AUTO 26 % (21-46); MONOCYTES PERCENT AUTO 8 % (4-13); Mean Corpuscular HGB 30.1 pg (26.0-34.0); Mean Corpuscular HGB Conc 35.4 g/dL (31.5-36.5); Mean Corpuscular Volume 85 fL (80-100); Mean Platelet Volume 8.5 fL (9.1-12.4); NEUTROPHILS ABSOLUTE AUTO 4.88 K/mm3 (1.96-9.15); NEUTROPHILS PERCENT AUTO 62 % (41-73); Platelet Count 239 K/mm3 (150-400); RDW Coefficient Variation 12.7 % (11.7-14.2); RDW Standard Deviation 39.4 fL (35.1-46.3); Red Blood Cell Count 5.61 M/mm3 (4.30-5.90); White Blood Cell Count 7.89 K/mm3 (4.00-11.30)
[2025-02-06 19:34] LABS: Albumin, Blood 3.9 g/dL (3.4-5.0); Albumin/Globulin Ratio 1.3 (0.8-1.8); Bilirubin, Total 0.4 mg/dL (0.1-1.0); Bun/Creatinine Ratio 34.8 (12.0-20.0); Calcium, Blood 8.6 mg/dL (8.5-10.1); Creatinine, Blood 0.78 mg/dL (0.60-1.20); Globulin, Blood 2.9 g/dL (2.2-4.0); Total Protein, Blood 6.8 g/dL (6.4-8.2)
[2025-02-06] MEDS ORDERED: Ketorolac Tromethamine 30mg Vial IV ONE (20:25)
[2025-02-06] MEDS ORDERED: Magnesium Citr296 ML PO (20:28)
[2025-02-06] MEDS ORDERED: Magic Bullet10 MG PR (20:28)
[2025-02-06 20:44] VITALS: BP 127/80
== END 2025-02-06 20:43 | disposition home or self-care (01) ==
LOC: ER 18:29
PROVIDERS: Emergency Medicine
DX: K59.00 Constipation, unspecified (principal); J45.909 Unspecified asthma, uncomplicated; G47.30 Sleep apnea, unspecified; F17.210 Nicotine dependence, cigarettes, uncomplicated; Z79.51 Long term (current) use of inhaled steroids; Z79.899 Other long term (current) drug therapy
CPT/HCPCS: 74019; 80053; 83690; 85025; 93005; 93010; 96361; 96374; 99285-25; J1885; J7030

== ENCOUNTER 2025-11-03 21:30 | Observation (INO) | payer OTHER ==
[~2025-11-03] VITALS: Ht 180.3 cm; Wt 112.9 kg
[~2025-11-03 21:30] MED LIST changes: +FLUT1DIS2 INH; +FLUT1DIS5 INH; +GABA800 PO; +GUAI200 PO; +HYDHCL25 PO; +MINIPRESS5 MG PO; +Magic Bullet10 MG PR; +Magnesium Citr296 ML PO; +NAPR500ERA PO; +NARCAN4 M1; +QUET300 PO; +SERT50 PO; +SPIRIVA RESPIMAT4 G3 IH; +STIOLTO RESPIMAT4 G1; +Sertraline HCl50 MG PO; +ZYRTEC10 M4 PO
[2025-11-03] MEDS ORDERED: Pantoprazole Sodium 40 MG Injection IV ONE (21:45)
[2025-11-03] MEDS ORDERED: Haloperidol Lactate Inj. 5 MG/ML Injection IV ONE (21:45)
[2025-11-03 22:03] LABS: BASOPHILS ABSOLUTE AUTO 0.04 K/mm3 (0.00-0.23); BASOPHILS PERCENT AUTO 0 % (0-2); EOSINOPHILS ABSOLUTE AUTO 0.21 K/mm3 (0.00-0.68); EOSINOPHILS PERCENT AUTO 2 % (0-6); Hematocrit 46.8 % (37.0-53.0); Hemoglobin 16.3 g/dL (13.5-17.5); IMMATURE GRAN ABSOLUTE AUTO 0.02 K/mm3 (0.00-0.10); IMMATURE GRAN PERCENT AUTO 0 % (0-1); LYMPHOCYTES ABSOLUTE AUTO 1.57 K/mm3 (0.84-5.20); LYMPHOCYTES PERCENT AUTO 16 % (21-46); MONOCYTES ABSOLUTE AUTO 0.69 K/mm3 (0.16-1.47); MONOCYTES PERCENT AUTO 7 % (4-13); Mean Corpuscular HGB Conc 34.8 g/dL (31.5-36.5); Mean Corpuscular Volume 84 fL (80-100); NEUTROPHILS ABSOLUTE AUTO 7.46 K/mm3 (1.96-9.15); NEUTROPHILS PERCENT AUTO 75 % (41-73); NRBC ABSOLUTE 0.00 K/mm3 (0.00-0.02); NRBC Auto 0.0 /100 WBC (0.0-0.2); Platelet Count 251 K/mm3 (150-400); RDW Coefficient Variation 13.3 % (11.7-14.2); RDW Standard Deviation 40.6 fL (35.1-46.3)
[2025-11-03 22:36] LABS: Ethanol (Alcohol), Blood, Med <3 mg/dL; Salicylate 2.0 mg/dL (2.8-20.0); Thyroid Stimulating Hormone 1.400 uIU/mL (0.360-4.800)
[2025-11-03 22:42] LABS: Alanine Aminotransfer (ALT/SGP 27 U/L (12-78); Albumin, Blood 4.3 g/dL (3.4-5.0); Albumin/Globulin Ratio 1.7 (0.8-1.8); Anion Gap 11 mmol/L (3-11); Aspartate Aminotrans (AST/SGOT 33 U/L (12-37); Bilirubin, Total 0.6 mg/dL (0.1-1.0); Blood Urea Nitrogen 25 mg/dL (8-24); CO2, Blood 23 mmol/L (21-32); Calcium, Blood 8.6 mg/dL (8.5-10.1); Chloride, Blood 106 mmol/L (98-108); Creatinine, Blood 0.79 mg/dL (0.60-1.20); Globulin, Blood 2.6 g/dL (2.2-4.0); Glucose, Blood 131 mg/dL (70-99); Potassium, Blood 3.8 mmol/L (3.5-5.5); Sodium, Blood 136 mmol/L (136-145); Total Protein, Blood 6.9 g/dL (6.4-8.2)
[2025-11-03 22:43] LABS: Acetaminophen, Random <2.0 ug/mL (10.0-30.0)
[2025-11-03 22:54] LABS: U Amphetamine Screen Not Detected; U Barbiturate Screen Not Detected; U Benzodiazapine Screen Not Detected; U Buprenorphine Screen Not Detected; U Cannabinoids Screen DETECTED; U Cocaine Screen Not Detected; U Methadone Screen Not Detected; U Methamphetamine Screen Not Detected; U Opiates Screen Not Detected; U Oxycodone Screen Not Detected; U Phencyclidine Screen Not Detected
[2025-11-04 00:38] VITALS: BP 129/87
[2025-11-04] MEDS ORDERED: Formoterol/Mometasone MDI 5/200 mcg 13 GM INH SCH (08:20)
[2025-11-04] MEDS ORDERED: Fluticasone 0.05% Nasal Spray SCH (09:00)
== END 2025-11-04 14:32 | disposition home or self-care (01) ==
LOC: ER 21:30 → EOR 21:31
PROVIDERS: ADMIT Emergency Medicine
DX: F31.9 Bipolar disorder, unspecified (principal); R45.851 Suicidal ideations; R10.13 Epigastric pain; F43.10 Post-traumatic stress disorder, unspecified; F20.9 Schizophrenia, unspecified; J44.9 Chronic obstructive pulmonary disease, unspecified; I10 Essential (primary) hypertension; G47.33 Obstructive sleep apnea (adult) (pediatric); F17.210 Nicotine dependence, cigarettes, uncomplicated; Z79.899 Other long term (current) drug therapy
CPT/HCPCS: 71045; 80053; 80320; 83690; 83880; 84443; 84484; 85025; 85379; 93005; 93010; 96374; 96375; 99285-25; A9270; G0378; G0480; J1630; J2470